=== PATIENT | female | born 1960 | race Caucasian/White ===

== ENCOUNTER → 2025-04-24 09:18 | Outpatient (BNVA) | payer OTHER, SELFPAY | PROVIDERS: PCP Internal Medicine; Visit Provider Emergency Medicine | DX: S83.421A Sprain of lateral collateral ligament of right knee, initial encounter (principal); X50.1XXA Overexertion from prolonged static or awkward postures, initial encounter | CPT/HCPCS: 99202 ==

== ENCOUNTER → 2025-05-01 11:45 | Outpatient (BNVA) | payer OTHER, SELFPAY | PROVIDERS: PCP Internal Medicine; Visit Provider Physician Assistant Medical | DX: S83.421A Sprain of lateral collateral ligament of right knee, initial encounter (principal); X50.1XXA Overexertion from prolonged static or awkward postures, initial encounter | CPT/HCPCS: 73564; 99213 ==

== ENCOUNTER → 2025-05-08 10:58 | Outpatient (BNVA) | payer OTHER, SELFPAY | PROVIDERS: PCP Physician Assistant Medical; Visit Provider Physician Assistant Medical | DX: S83.421D Sprain of lateral collateral ligament of right knee, subsequent encounter (principal); X50.1XXD Overexertion from prolonged static or awkward postures, subsequent encounter | CPT/HCPCS: 99213 ==

== ENCOUNTER → 2025-05-24 10:55 | Outpatient (BNVA) | payer OTHER, SELFPAY | PROVIDERS: Visit Provider Physician Assistant Medical | DX: S83.421D Sprain of lateral collateral ligament of right knee, subsequent encounter (principal); X50.1XXD Overexertion from prolonged static or awkward postures, subsequent encounter | CPT/HCPCS: 99213 ==

== ENCOUNTER 2025-06-03 18:19 | Outpatient (REF) | payer OTHER, SELFPAY ==
--- NOTE | ~2025-06-03 | MR_ITS ---
EXAMINATION: MR KNEE WITHOUT IV CONTRAST RIGHT HISTORY: Right knee internal derangement COMPARISON: Correlation is made with plain films of the right knee dated 05/01/1985. TECHNIQUE: Coronal T1 and fat-suppressed proton density, sagittal proton density and fat-suppressed proton density, and axial fat suppressed T2 weighted MR images of the right knee were obtained. FINDINGS: Bone marrow: There is marrow edema involving the lateral femoral condyle with cortical irregularity. Findings may represent an osteochondral injury. There is mild marrow edema involving the posterior aspect of the medial tibial plateau. Joint effusion: There is a small joint effusion. Tolliver's cyst: There is no Tolliver's cyst. Articular cartilage: There is mild thinning of the patellar cartilage. Muscles/soft tissues: The visualized muscles demonstrate normal signal intensity. Anterior cruciate ligament: Intact Posterior cruciate ligament: Intact Medial collateral ligament: Intact Lateral collateral ligament: Intact Medial meniscus: There is a focal defect involving the free edge of the posterior horn of the medial meniscus, consistent with a tear. The body and anterior horn are intact. Lateral meniscus: Intact Flexor mechanism: The popliteus, gastrocnemius, and hamstring tendons are intact. Quadriceps tendon: Intact Patellar tendon: Intact Patellar retinacula: Intact MR/MR knee RT wo con IMPRESSION: 1. Tear of the posterior horn of the medial meniscus as described. 2. Marrow edema involving the lateral femoral condyle with a possible osteochondral injury. 3. Mild marrow edema involving the posterior aspect of the lateral tibial plateau. 4. Mild thinning of the patellar cartilage. Electronically signed by: Benito Riggs MD 06/04/2025 11:22 AM EST
--- OUTSIDE RECORDS SUMMARY | 2025-06-03 18:27 | XMS_ITS | Clinical Summary ---
Author Organization [address] Address [address] [place] [phone] Phone Care Team Providers Care Machine Driller Name Role Phone Odalis Rowell MD Primary Care Provider [phone] Allergies Active Allergy Reactions Criticality Noted Date Comments Penicillins 10/06/2017 Medications albuterol HFA (Ventolin HFA) 90 mcg/actuation inhalerIndication s:Chronic obstructive pulmonary disease with acute exacerbation (CMS/HCC V24, CMS/HCC V28) Inhale 2 puffs by mouth every 6 (six) hours if needed for wheezing or shortness of breath. 18 g 2 5 01/04/20 26 Active fluticasone propionate (FLONASE) 50 mcg/actuation nasal sprayIndications: Chronic obstructive pulmonary disease with acute exacerbation (CMS/HCC V24, CMS/HCC V28) Administer 1 spray into each nostril 2 (two) times a day. 48 g 1 5 Active atorvastatin (LIPITOR) 10 mg tablet Take 1 tablet (10 mg total) by mouth 1 (one) time each day. 90 each 1 5 09/03/19 26 Active budesonide-glycop yr-formoterol (Breztri Aerosphere) 160-9-4.8 mcg/actuation HFA aerosol inhaler inhalerIndication s:Chronic obstructive pulmonary disease with acute exacerbation (CMS/HCC V24, CMS/HCC V28),Cigarette smoker Inhale 2 puffs by mouth 2 (two) times a day. 1 each 2 5 04/03/20 26 Active benzonatate (TESSALON) 100 mg capsuleIndication s:Chronic obstructive pulmonary disease with acute exacerbation (CMS/HCC V24, CMS/HCC V28),Chronic cough Take 1 capsule (100 mg total) by mouth 3 (three) times a day if needed for cough. Do not crush or chew. 60 capsule 1 5 10/01/19 26 Active Active Problems Problem Noted Date Diagnosed Date Non-seasonal allergic rhinitis 12/12/2024 Chronic obstructive pulmonar y disease with acute exacerbation 09/20/[address] 06/09/2019 Overview (09/20/2024): 06/2019. Bilateral groundglass opacities. Ascending aorta dilatation 05/19/2019 Overview (09/20/2024): sees cardiac surg, 3.6cm. Repeat ct November 2019 and if no change, repeat 1 year Assessment & Plan (04/17/2025 6:01 PM EST): Patient with minimal dilatation of the ascending aorta in 2022 now with no significant dilatation based on the recent CT scan but I do not have the actual images available for measurement. At best it has not increased in size. Blood pressure is well-controlled lipids are well-controlled. The patient has been getting annual CT scans of the chest due to her tobacco abuse history. So this dilatation of the aorta will be followed on a regular basis. Please refer the patient back to us if there is any evidence for dilatation on future studies. At the present time the most recent study was read as normal Orders: ECG 12 lead LVH (left ventricular hypertrophy) 05/19/2019 Overview (09/20/2024): Echo 04/25. Mild. Normal ejection fraction. Cigarette smoker 03/20/2019 Encounters Date Type Department Care Team Description 04/24/2025 2:00 PM EST Consult Endocrinology - [place] [address] [place] [address] Rmaez Rivas MD Adrenal mass (CMS/HCC V24) 04/17/2025 9:20 AM EST Office Visit [facility] - [facility] [address] [facility] [address] [place] [phone] Bud Barber MD Ascending aorta dilatation ([facility] V24) (Primary Dx) 04/03/2025 11:25 AM EDT Office Visit Pulmonology - [place] [address] [place] [phone] Ruby Cain NP Chronic obstructive pulmonary disease with acute exacerbation (CMS/[facility] V24, CMS/[facility] V28) (Primary Dx); Cigarette smoker; Chronic cough; Non-seasonal allergic rhinitis, unspecified trigger; Obesity (BMI 30-39.9) 03/23/2025 Telephone Internal Medicine - [place] [address] [place] [address] Odalis Rowell MD 03/16/2025 3:30 PM EDT Office Visit Vascular Surgery - [place] [address] [facility] [address] [place] [phone] Bren Gracia PA Varicose veins of left leg with edema (Primary Dx) 03/06/2025 1:30 PM EDT Office Visit Internal Medicine - [place] [address] [facility] [place] [phone] Odalis Rowell MD Mixed hyperlipidemia (Primary Dx); Chronic obstructive pulmonary disease with acute exacerbation ([facility] V24, [facility]/HCC V28); Adrenal mass ([facility] V24); Encounter for screening mammogram for malignant neoplasm of breast; Kidney cysts; Non-seasonal allergic rhinitis, unspecified trigger; Stress incontinence; Callus of foot; Thyroid nodule; Prediabetes; Tobacco use from Last 3 Months Immunizations Immunization Administration Dates Next Due Influenza, Unspecified 04/16/2022 Pfizer SARS-CoV-2 COVID-19, mRNA, LNP-S, preservative free 05/15/2021,06/25/2020 Surgical History Surgery Date Site/Laterality Comments OTHER SURGICAL HISTORY PROCEDURE: ANALGESIA FOR LABOR/ SECTION, LOW TRANSVERSE Medical History Medical History Date Comments Cigarette smoker 03/20/2019 DX:Cigarette sm oker LVH (left ventricular hypertrophy) 05/19/2019 DX:LVH (left ventricular hypertrophy); COMMENT: Echo 04/25. Mild. Normal ejection fraction. Ascending aorta dilatation (CMS/HCC V24) 019 DX:Ascending aorta dilatation (HCC); COMMENT: Echo 04/25. 3[address] referral to vascular. Abnormal chest CT 06/09/2019 DX:Abnormal ch est CT; COMMENT: 06/2019. Bilateral groundglass opacities. COPD (chronic obstructive pu lmonary disease) (CMS/HCC V24, CMS/HCC V28) Hypercholesteremia Family History Medical History Relation Name Comments Heart attack Father Relation Name Status Comments Father Social History Tobacco Use Types Packs/Day Years Used Date Smoking Tobacco: Every Day Cigarettes 0.8 37.4 Started: 01/19/1988 Smokeless Tobacco: Never Tobacco Cessation:Ready to Q uit: Not Asked; Counseling Given: Not Answered Comments:Smoked half ppd x 40 yrs Quit cold turkey during Alcohol Use Standard Drinks/Week Comments Never 0 (1 standard drink = 0.6 oz pur e alcohol) Housing Instability Answer Date Recorde d Are you worried that in the next 2 months you may not have stable housing? No 09/20/2024 Food Access & Nutrition Answer Date Rec orded Do you have access to a vari ety of food including fruits and vegetables? Yes 09/20/2024 Access to Healthcare Answer Date Record ed Within the last 3 months, ho w many times did you visit the emergency department for your medical care? 0 09/20/2024 Health Literacy Answer Date Recorded How often do you need to hav e someone help you when you read instructions, pamphlets, or other written material from your doctor or pharmacy? Never 09/20/2024 Caregiver: How often do you need to have someone help you when you read instructions, pamphlets, or other written material from your doctor or pharmacy? Not on file 09/20/2024 Financial Risk Answer Date Recorded How hard is it for you to pa y for the very basics like food, housing, medical care, and air conditioning / heating? Not very hard 09/20/2024 Transportation Answer Date Recorded Has the lack of transportati on kept you from meetings, work, or from getting things needed for daily living? No Has the lack of transportati on kept you from medical appointments or from getting medications? No 09/20/2024 Social Isolation Answer Date Recorded How often do you feel lonely or isolated from th ose around you? Never 09/20/2024 Food Risk Answer Date Recorded Within the past 12 months we worried whether our food would run out before we got money to buy more. Never true 09/20/2024 Within the past 12 months th e food we bought just didn't last and we didn't have money to get more. Never true 09/20/2024 Dependent Care Answer Date Recorded Do you need help finding or paying for care for your loved ones. For example, child protective services specialist or elderly care for an older adult? No 09/20/2024 Education Answer Date Recorded Do you think completing more education or training, like finishing a GED, going to college, or learning a trade, would be helpful for you? No 09/20/2024 Employment and Income Answer Date Recor ded During the last four weeks, have you been actively looking for work? No 09/20/2024 Living Situation Answer Date Recorded What is your living situation? Unrecognized valu e 09/20/2024 Comments No Sex and Gender Information Value Date Recorded Sex Assigned at Not on file Legal Sex Female 6:18 AM EST Gender Identity Not on file Sexual Orientation Not on file Last Filed Vital Signs Vital Sign Reading Time Taken Comments Blood Pressure 136/65 04/24/2025 2:11 PM EST Pulse 81 04/24/2025 2:11 PM EST Temperature 36.1 C (97 F) 04/03/2025 11:40 AM EDT Respiratory Rate 15 04/03/2025 11:40 AM EDT Oxygen Saturation 96% 04/17/2025 9:22 AM EST Inhaled Oxygen Concentration - - Weight 85 kg (187 lb 6.4 oz) 04/24/2025 2:11 PM EST Height 154.9 cm (5' 1 ) 04/24/2025 2:11 PM EST Body Mass Index 35.41 04/24/2025 2:11 PM EST Plan of Treatment Upcoming Encounters Date Type Department Care Team (Late st Contact Info) Description 06/19/2025 10:20 AM EST Office Visit Endocrinology - [place] [address] [place] [address] Ramez Rivas MD [address] [place] [address] 06/19/2025 1:00 PM EST Office Visit Internal Medicine - [facility] [address] [place] [phone] Betsy Wong, USHA [address] [place] [address] 06/20/2025 1:00 PM EST Office Visit Pulmonology - [place] [address] [place] [address] Ruby Cain, USHA [address] [place] [phone] 07/11/2025 1:00 PM EST Office Visit [facility]rogynecology [facility] [address] [place] [address] Camille Otto MD [address] [facility] [address] [place] [address] Health Maintenance Due Date Last Done Comments Breast Cancer Screening 1960 Colorectal Cancer Screening: Colonoscopy 1960 DTaP,Tdap,and Td Vaccines (1 - Tdap) 1977 Pneumococcal Vaccine: 50+ Years (1 of 2 - PCV) 1977 RSV Immunization Adult Patients (1 - Risk 50-74 years 1-dose series) 01/19/2008 Zoster Vaccines (1 of 2) 01/19/2008 Hepatitis C Screening 05/10/2022 Osteoporosis Screening (Bone Density Screening) 05/10/2022 COVID-19 Vaccine (2024- season) 2025 10/03/2021, 05/15/2021, 06/25/2020, Additional history exists Influenza Vaccine (#1) 2025 , 03/18/2021, 03/21/2020 Falls Risk Assessment 09/20/2025 09/20/2024 Social Influencers of Health Screening 09/20/2025 09/20/2024 Lung Cancer Screening (Low Dose CT) 12/19/2025 12/19/2024 Cholesterol Screening (Lipid Panel) 10/10/2029 10/10/2024, 09/08/2022 Depression Screening Completed 09/20/2024 HIB Vaccines Aged Out No longer eligi ble based on patient's age to complete this topic HPV Vaccines Aged Out No longer eligi ble based on patient's age to complete this topic Hepatitis A Vaccines Aged Out No long er eligible based on patient's age to complete this topic Hepatitis B Vaccines Aged Out No long er eligible based on patient's age to complete this topic IPV Vaccines Aged Out No longer eligi ble based on patient's age to complete this topic MMR Vaccines Aged Out No longer eligi ble based on patient's age to complete this topic Meningococcal ACWY Vaccine Aged Out N o longer eligible based on patient's age to complete this topic Meningococcal B Vaccine Aged Out No l onger eligible based on patient's age to complete this topic RSV Immunization Patients Under 20 months Aged Out No longer eligible based on patient's age to complete this topic Varicella Vaccines Aged Out No longer eligible based on patient's age to complete this topic Procedures Procedure Name Priority Date/Time Associated Diagnosis Comments EXTERNAL XRAY REPORT 05/01/2025 ECG 12-LEAD Routine 04/17/2025 9:26 AM EST Ascending aorta dilatation (CMS/HCC V24) CT LUNG SCREENING Routine 12/19/2024 2:3 8 PM EDT Encounter for screening for malignant neoplasm of respiratory organs Nicotine dependence, cigarettes, uncomplicated LIPID PANEL WITH REFLEX TO DIRECT LDL Routine 10/10/2024 9:18 AM EDT Screening for phenylketonuria (PKU) from Last 3 Months or Most Recently Relevant to Health Maintenance Results * External Xray Report (05/01/2025) Anatomical Region Laterality Modality Radiographic Reta ging us Provider [facility] IM[facility] XR PROCEDURES Final Result * ECG 12 lead (04/17/2025 9:26 AM EST) Ventricular Rate ECG 75 BPM GEMUSE Atrial Rate 75 BPM GEMUSE P-R Interval 168 ms GEMUSE QRS Duration 78 ms GEMUSE Q-T Interval 372 ms GEMUSE QTc 415 ms GEMUSE P Wave Rapelje 57 degrees GEMUSE R Rapelje 33 degrees GEMUSE T Rapelje 62 degrees GEMUSE ECG Interpretation Normal sinus rhythm Low voltage QRS Borderline ECG No previous ECGs available Confirmed by Peggy BARBER, BUD ([id number]) on 04/17/2025 5:03:55 PM GEMUSE 04/17/2025 9:26 AM EST 04/17/2025 5:03 PM EST us Bud Barber MD ECG ORDERABLES Final Result GEMUSE * CT Lung Screening (12/19/2024 2:38 PM EDT) Anatomical Region Laterality Modality Chest Computed Tomogra phy 12/22/2024 11:0 4 AM EDT Addenda Addendum by Stefan Mosley MD on 12/22/2024 2:51 PM EDT Addendum: At the time of this addendum the patient has undergone a CT of the abdomen and pelvis at [facility]. Please see full report from that examination. -------- ADDENDUM -------- Dictated By: Stefan Mosley Dictated Date: 12/22/2024 14:49 ET Assigned Physician: Stefan Mosley Reviewed and Electronically Signed By: Stefan Mosley Signed Date: 12/22/2024 14:51 ET Workstation ID: [id number] Transcribed By: Self Edit Transcribed Date: 12/22/2024 14:49 ET Impressions 12/22/2024 11:19 AM EDT There are scattered micronodules all of which measure less than 0.6 cm. These can be reexamined at the time of lung cancer screening in one year. Mosaic attenuation in the lungs is nonspecific. LUNG RADS: Lung-RADS 2: BENIGN S Modifier (Significant or Potentially Significant Findings): None present There is a potentially suspicious abnormality in the expected region of the left adrenal gland. This does not have the typical features of a benign process. However, this is not completely included. Further evaluation is warranted. Previous studies have been requested RECOMMENDATIONS: 12 month screening low dose CT An addendum can be generated if previous studies become available -------- FINAL REPORT -------- Dictated By: Stefan Mosley Dictated Date: 12/22/2024 11:04 ET Assigned Physician: Stefan Mosley Reviewed and Electronically Signed By: Stefan Mosley Signed Date: 12/22/2024 11:19 ET Workstation ID: [id number] Transcribed By: Self Edit Transcribed Date: 12/22/2024 11:04 ET Narrative 12/22/2024 11:19 AM EDT EXAMINATION: CT CHEST WITHOUT CONTRAST LUNG CANCER SCREENING, LOW DOSE CLINICAL INFORMATION: Lung cancer screening. Current smoker. COMPARISON: None TECHNIQUE: Multidetector CT. Examination of the chest. Examination of the chest without IV contrast. Reformatting in the coronal and sagittal planes. Device: [id number] VCT DLP: 170 mGy-cm CTDI: 4.83 Dose optimization was performed including the use of low-dose iterative reconstruction technique with automatic exposure control based on patient size. Type of contrast: None Volume of IV contrast: None Volume of contrast discarded: 0 mL FINDINGS: LUNG: No abnormality of the trachea or mainstem bronchi. LUNG NODULES: There are no suspicious nodules or masses. OTHER PULMONARY: There are scattered micronodules all of which measure less than 0.4 cm. There are areas of mosaic attenuation possibly related to air trapping or hypersensitivity. There is no honeycomb formation. MEDIASTINUM: There are multiple top normal nonspecific mediastinal lymph nodes. No suspicious abnormality the esophagus. CARDIAC: The heart is not enlarged. No pericardial fluid or thickening There are mild coronary calcifications. VASCULAR: There is no thoracic aortic aneurysm. The main pulmonary artery is normal caliber PLEURA: There is no pleural fluid or pneumothorax AXILLA/CHEST WALL: There are no enlarged lymph nodes. There is a 0.7 cm oval nodule in the right breast (4/47). Recommend correlation with mammography. VISUALIZED UPPER ABDOMEN: There is an irregular greater than 5 cm abnormality in the expected region of the left adrenal gland (4/125. This does not have the typical features of a benign mass. This requires further evaluation. MUSCULOSKELETAL: No suspicious focal bony lesion demonstrated. Procedure Note Stefan Mosley MD - 12/22/2024 EXAMINATION: CT CHEST WITHOUT CONTRAST LUNG CANCER SCREENING, LOW DOSE CLINICAL INFORMATION: Lung cancer screening. Current smoker. COMPARISON: None TECHNIQUE: Multidetector CT. Examination of the chest. Examination of the chest without IV contrast. Reformatting in the coronal and sagittal planes. Device: 15MinutesNOW VCT DLP: 170 mGy-cm CTDI: 4.83 Dose optimization was performed including the use of low-dose iterativereconstruction technique with automatic exposure control based on patientsize. Type of contrast: None Volume of IV contrast: None Volume of contrast discarded: 0 mL FINDINGS: LUNG: No abnormality of the trachea or mainstem bronchi. LUNG NODULES: There are no suspicious nodules or masses. OTHER PULMONARY: There are scattered micronodules all of which measureless than 0.4 cm. There are areas of mosaic attenuation possibly related to air trapping orhypersensitivity. There is no honeycomb formation. MEDIASTINUM: There are multiple top normal nonspecific mediastinal lymphnodes. No suspicious abnormality the esophagus. CARDIAC: The heart is not enlarged. No pericardial fluid or thickening There are mild coronary calcifications. VASCULAR: There is no thoracic aortic aneurysm. The main pulmonary arteryis normal caliber PLEURA: There is no pleural fluid or pneumothorax AXILLA/CHEST WALL: There are no enlarged lymph nodes. There is a 0.7 cm oval nodule in the right breast (4/47). Recommendcorrelation with mammography. VISUALIZED UPPER ABDOMEN: There is an irregular greater than 5 cmabnormality in the expected region of the left adrenal gland (4/125. Thisdoes not have the typical features of a benign mass. This requires furtherevaluation. MUSCULOSKELETAL: No suspicious focal bony lesion demonstrated. IMPRESSION: There are scattered micronodules all of which measure less than 0.6 cm.These can be reexamined at the time of lung cancer screening in oneyear. Mosaic attenuation in the lungs is nonspecific. LUNG RADS: Lung-RADS 2: BENIGN S Modifier (Significant or Potentially Significant Findings): Nonepresent There is a potentially suspicious abnormality in the expected region ofthe left adrenal gland. This does not have the typical features of abenign process. However, this is not completely included. Further evaluation is warranted. Previous studies have been requested RECOMMENDATIONS: 12 month screening low dose CT An addendum can be generated if previous studies become available -------- FINAL REPORT -------- Dictated By: Stefan Mosley Dictated Date: 12/22/2024 11:04 ET Assigned Physician: Stefan Mosley Reviewed and Electronically Signed By: Stefan Mosley Signed Date: 12/22/2024 11:19 ET Workstation ID: [id number] Transcribed By: Self Edit Transcribed Date: 12/22/2024 11:04 ET Kiran Petty MD IM CT PROCEDURES Edited Result - Final * (ABNORMAL) Lipid panel with reflex to direct LDL (10/10/2024 9:18 AM EDT) Cholesterol 214(H) 0 - 200 mg/dL LAB CHEMISTR[facility] Triglycerides 108 0 - 150 mg/dL LAB CHEMISTRY METHOD 10/10/2024 12:56 PM [facility] HDL 60 >=40 mg/dL LAB CHEMISTRY METHOD 10/10/2024 12:56 PM [facility] LDL Calculated 132(H) 0 - 100 mg/dL LAB CHEMISTRY METHOD 10/10/2024 12:56 PM [facility] VLDL Cholesterol [place] 21.6 mg/dL LAB CHEMISTRY METHOD 10/10/2024 12:56 PM [facility] Non HDL Chol. (LDL+VLDL) 154(H) <145 mg/dL LAB CHEMISTRY METHOD 10/10/2024 12:56 PM [facility] Chol/HDL Ratio 3.6 0.0 - 4.4 LAB CHEMISTRY METHOD 10/10/2024 12:56 PM [facility] Blood Venous blood specimen / Unknown Venipuncture / Unknown 10/10/2024 9:18 AM EDT 10/10/2024 9:18 AM EDT us Betsy Burroughs [employer] LAB BLOOD ORDERABLES Final R esult [facility] [address] [place] [address], from Last 3 Months or Most Recently Relevant to Health Maintenance Insurance [facility] [address] [place] [address] Care Teams Machine Driller Relationship Specialty Start Date End Date Odalis Rowell MD [address] [place], [place] PCP - General Internal Medicine 08/28/24
== END 2025-06-03 18:20 | disposition home or self-care (01) ==
LOC: HO.MRI 18:19
PROVIDERS: Visit Provider Physician Assistant Medical
DX: M23.91 Unspecified internal derangement of right knee (principal)
CPT/HCPCS: 73721

== ENCOUNTER → 2025-06-03 18:26 | Outpatient (BNV) | payer OTHER, SELFPAY | PROVIDERS: Visit Provider Radiology Diagnostic Radiology | DX: S83.241A Other tear of medial meniscus, current injury, right knee, initial encounter (principal); R60.0 Localized edema | CPT/HCPCS: 73721 ==

== ENCOUNTER → 2025-06-06 14:24 | Outpatient (BNVA) | payer OTHER, SELFPAY | PROVIDERS: Visit Provider Physician Assistant Medical | DX: S83.421D Sprain of lateral collateral ligament of right knee, subsequent encounter (principal); X50.1XXD Overexertion from prolonged static or awkward postures, subsequent encounter | CPT/HCPCS: 99202 ==